=== PATIENT | female | born 1960 | race Asian ===

== ENCOUNTER 2018-02-05 10:04 | Outpatient (CLI) | payer BC ==
--- NOTE | 2018-02-05 13:15 | MMO ---
BILATERAL MAMMOGRAMS: DATE: 02/05/18 HISTORY: Screening mammography. COMPARISON: None. Baseline study. FINDINGS: Heterogeneously dense fibroglandular tissue and benign-appearing calcifications. No dominant mass or suspicious calcifications. The study was evaluated with the assistance of computer-aided detection. IMPRESSION: BIRADS 1: Negative Suggest routine follow-up. POS: [facility]
== END 2018-02-05 10:05 | disposition home or self-care (01) ==
LOC: SCSMAMMO 10:04
PROVIDERS: ATTEND Family Medicine
DX: Z12.31 Encounter for screening mammogram for malignant neoplasm of breast (principal)
CPT/HCPCS: 77067

== ENCOUNTER 2018-08-14 10:31 | Outpatient (CLI) | payer BC ==
--- NOTE | 2018-08-14 11:40 | RAD ---
PA CHEST TWO VIEWS RIGHT RIBS: Date: 08-14-18 Provided Clinical History: Right rib pain. FINDINGS: Cardiac silhouette is upper limits of normal in size. Vascular calcification involves the aortic arch . No focal consolidation, pleural fluid or pneumothorax apparent. No evidence for displaced right allyn ed rib fracture. IMPRESSION: No evidence for an acute process. POS: [facility]
== END 2018-08-14 10:32 | disposition home or self-care (01) ==
LOC: BICRAD 10:31
PROVIDERS: ATTEND Family Medicine
DX: R07.81 Pleurodynia (principal)

== ENCOUNTER 2019-02-19 08:00 | Outpatient (CLI) | payer BC ==
--- NOTE | 2019-02-19 08:54 | MMO ---
Bilateral MAMMO Bilat Screen [facility]. CLINICAL HISTORY: Patient is 58 years old and is seen for screening. The patient has no family history of breast cancer. The patient has no personal history of cancer. VIEWS: The views performed were: bilateral craniocaudal and bilateral mediolateral oblique. FILMS COMPARED: The present examination has been compared to a prior imaging study performed at [facility] on 02/05/2018. This study has been interpreted with the assistance of computer-aided detection. MAMMOGRAM FINDINGS: The breasts are heterogeneously dense, which could obscure a lesion on mammography. There are no suspicious masses, suspicious calcifications, or new areas of architectural distortion. IMPRESSION: THERE IS NO MAMMOGRAPHIC EVIDENCE OF MALIGNANCY. A ROUTINE FOLLOW-UP MAMMOGRAM IN 1 YEAR IS RECOMMENDED. ACR BI-RADS Category 1 - Negative MAMMOGRAPHY NOTE: 1. A negative mammogram report should not delay a biopsy if a dominant of clinically suspicious mass is present. 2. Approximately 10% to 15% of breast cancers are not detected by mammography. 3. Adenosis and dense breasts may obscure an underlying neoplasm. Reported by: ALMA CURIEL MD Electonically Signed: [id number]
== END 2019-02-19 08:01 | disposition home or self-care (01) ==
LOC: SCSMAMMO 08:00
PROVIDERS: ATTEND Family Medicine
DX: Z12.31 Encounter for screening mammogram for malignant neoplasm of breast (principal)
CPT/HCPCS: 77067